=== PATIENT | female | born 1990 | race Caucasian/White ===

== ENCOUNTER 2016-07-25 16:07 | Emergency (ER) | payer OTHER ==
[~2016-07-25 16:07] MED LIST: AMOXICILLIN PO; BACTRIM DS TABL1 TA1 PO; CIPRO PO; CLARITIN10 MG PO; IBUPROFEN PO; KLONOPIN0.5 M1; NO MEDICATIONS; ORTHO-CYCLEN1 TAB PO; PRENATAL VITAMI1 TA3 PO; PYRIDIUM PO; VICODIN 5/500 T1 TAB PO
[2016-07-25] MEDS ORDERED: ESTRADIOL1 MG PO (16:13)
[2016-07-25] MEDS ORDERED: FLORINEF0.1 M1 PO (16:14)
[2016-07-25] MEDS ORDERED: LASIX20 MG PO (16:14)
[2016-07-25] MEDS ORDERED: METOPROLOL TAR25 MG PO (16:14)
[2016-07-25] MEDS ORDERED: FLEXERIL (16:17)
[2016-07-25 17:04] LABS: URINE SOURCE CLEAN CATCH
[2016-07-25 17:08] LABS: URINE APPEARANCE CLEAR; URINE BILIRUBIN NEG (NEG); URINE BLOOD NEG (NEG); URINE COLOR YELLOW; URINE GLUCOSE NEG (NORM); URINE KETONE 1+ (NEG); URINE LEUKOCYTE ESTERASE NEG (NEG); URINE NITRATE NEG (NEG); URINE PROTEIN NEG (NEG)
[2016-07-25 17:09] LABS: MICRO INDICATED? NO
[2016-07-25 17:15] LABS: BASOPHIL% 0.3 % (0-2.5); DIFF IND NO; EOSINOPHIL# 0.1 X10e3 (0-0.7); EOSINOPHIL% 0.8 % (0.0-7.0); HEMATOCRIT 34.6 % (35.0-45.0); HEMOGLOBIN 11.4 gm/dL (12.0-16.0); LYMPHOCYTE# 0.8 X10e3 (1.0-3.5); MEAN CELL VOLUME 78.1 FL (83-96); MEAN CORPUSCULAR HEMOGLOBIN 25.7 PG (28-34); MEAN CORPUSCULAR HGB CONC 32.9 g/dL (30-36); MEAN PLATELET VOLUME 7.7 FL (6.5-11.5); MONOCYTE# 0.6 X10e3 (0-1.0); MONOCYTE% 4.8 % (3.0-12.0); NEUTROPHIL# 11.7 X10e3 (1.5-7.1); NEUTROPHIL% 88.1 % (40-75); PLATELET COUNT 251 X10e3 (140-420); RED BLOOD COUNT 4.43 X10e (3.90-5.30); RED CELL DISTRIBUTION WIDTH 14.5 % (11.0-15.5); WHITE BLOOD COUNT 13.2 X10e3 (4.0-10.5)
[2016-07-25 17:39] LABS: ALBUMIN SERUM 3.2 g/dL (3.5-5.0); BILIRUBIN, DIRECT 0.1 mg/dL (0.0-0.2); BILIRUBIN,INDIRECT 0.3 mg/dL (0.0-0.9); BILIRUBIN,TOTAL 0.4 mg/dL (0.2-2.0); BUN/CREATININE RATIO 13.33; CALCIUM SERUM 8.2 mg/dL (8.4-10.2); CREATININE SERUM 0.6 mg/dL (0.6-1.4); GLOM FILT RATE Estimated 125.8 mL/min (>60); POTASSIUM 3.5 mmol/L (3.5-5.1); PROTEIN TOTAL SERUM 6.4 g/dL (6.0-8.3)
== END 2016-07-25 18:13 | disposition home or self-care (01) ==
LOC: SED 16:07
PROVIDERS: Physician Assistant
DX: O21.9 Vomiting of pregnancy, unspecified (principal)
CPT/HCPCS: 36415; 80048; 80076; 81003; 85025; 96360; 99284